=== PATIENT | male | born 1990 | race African-American/Black ===

== ENCOUNTER 2018-03-01 17:03 | Emergency (ER) | payer SELFPAY ==
[~2018-03-01] VITALS: Ht 182.9 cm; Wt 59.0 kg
[2018-03-01 17:22] VITALS: Ht 182.9 cm; Wt 59.0 kg
[2018-03-01 18:20] VITALS: BP 133/79
== END 2018-03-01 18:20 | disposition home or self-care (01) ==
LOC: ED 17:03
DX: K03.81 Cracked tooth (principal); L20.9 Atopic dermatitis, unspecified; R03.0 Elevated blood-pressure reading, without diagnosis of hypertension
CPT/HCPCS: J1885